=== PATIENT | female | born 1970 | race Caucasian/White ===

== ENCOUNTER 2018-09-12 10:32 | Emergency (ER) | payer MEDICAID ==
[~2018-09-12] VITALS: Ht 160 cm; Wt 75.7 kg
[~2018-09-12 10:32] MED LIST: AZIT250T PO; CYCL10TA7 PO; DM H; HYDR-3498 PO; IBUP-1542 PO; NAPR-985 PO
[2018-09-12 10:35] VITALS: BP 145/74; PULSE 74; RESP 17; Ht 160 cm; Wt 75.7 kg
[2018-09-12] MEDS ORDERED: LORA-441 PO (11:55)
[2018-09-12] MEDS ORDERED: NAPR-688 PO (11:55)
--- NOTE | 2018-09-12 14:28 | ERD ---
ER Documentation Chief Complaint Chief Complaint BACK AND NECK PAIN "FROM STANDING TO LONG" HPI 48-year-old female presents to the ED complaining of cervical neck pain rating down to her shoulder for the past 3 weeks. Patient states the pain is moderate in severity described as aching. She states that the moving from the right to left increases her pain. She has not taken any medications today. Denies fevers or trauma. Patient also states that she has a history of lower back pain but states it is improved today ROS All systems reviewed and are negative except as per history of present illness. Medications Home Meds Active Scripts Lorazepam* (Ativan*) 0.5 Mg Tablet, 0.5 MG PO QHS PRN for MUSCLE SPASMS, #10 TAB Prov:KIKE SPEARS PA-C 09/12/18 Naproxen* (Naproxen*) 500 Mg Tablet, 500 MG PO BID, #30 TAB Prov:KIKE SPEARS PA-C 09/12/18 Naproxen* (Naprosyn*) 500 Mg Tablet, 500 MG PO BID PRN for PAIN AND/OR INFLAMMATION, #30 TAB Prov:FELISA GALLEGO PA-C 02/11/16 Cyclobenzaprine Hcl* (Cyclobenzaprine Hcl*) 10 Mg Tablet, 10 MG PO QHS, #20 TAB Prov:FELISA GALLEGO PA-C 02/11/16 Ibuprofen* (Motrin*) 600 Mg Tab, 600 MG PO Q6, #14 TAB Prov:APOLONIA GRIMM MD 10/12/15 Azithromycin* (Zithromax*) 250 Mg Tablet, 250 MG PO .YonatanPACK DIRECTED, #6 TAB TAKE 500 MG (2 TABS) THE FIRST DAY THEN 250 MG (1 TAB) DAYS 2-5 Prov:APOLONIA GRIMM MD 10/12/15 Ibuprofen* (Motrin*) 600 Mg Tab, 600 MG PO Q6, #20 TAB Prov:ENRRIQUE ROMERO PA-C 06/01/15 Hydrocodone Bit-Acetaminophen* ([place]*) 5-325 Mg Tab, 1 TAB PO Q6 PRN for PAIN, #14 TAB Prov:ENRRIQUE ROMERO PA-C 06/01/15 Reported Medications Dm Hb/Pseudoephed/Acetamin/Cp (Tylenol Cold Caplet) 1 Tab Tablet 09/27/12 Allergies Allergies: Coded Allergies: Penicillins (Verified Allergy, Mild, 11/05/13) PMhx/Soc Medical and Surgical Hx: pt denies Medical Hx History of Surgery: Yes (,, appendectomy) Anesthesia Reaction: No Hx Neurological Disorder: No Hx Respiratory Disorders: No Hx Cardiac Disorders: No Hx Psychiatric Problems: No Hx Miscellaneous Medical Probl: No Hx Alcohol Use: No Hx Substance Use: No Hx Tobacco Use: No Smoking Status: Never smoker Physical Exam Vitals Vital Signs Date Temp Pulse Resp B/P (MAP) Pulse Ox O2 O2 Flow FiO2 Time Delivery Rate 09/12/18 97.5 74 17 145/74 100 10:35 (97) Physical Exam GENERAL: WD/WN, in no apparent distress, non-toxic appearing HENT: NC/AT EYES: Conjunctiva normal NECK: Supple, no masses felt, tender to palpation on right trapezius muscle, non-tender to palpation on cervical spine midline, full range of motion PULM: Normal labored breathing CV: Good capillary refill GI: Non-distended, no guarding BACK: no deformities noted, normal spinal curvature EXT: No clubbing, cyanosis, or edema NEURO: Moves on all fours, sensation intact, normal gait SKIN: intact PSYCH: Normal mood Procedures/MDM 48-year-old female presents to the ER with acute neck pain and muscle spasms, low suspicion for vertebral fracture, cervical radiculopathy, meningitis, epidural abscess, or vertebral osteomyelitis. Patient was given pain relief in the ED. I believe patient is best treated as an outpatient if pain persists.Patient stable and neurovascularly intact for discharge. Prescription for Profen and Short course Ativan as a muscle relaxer was given to patient, discussed to return to the ED if not improving as expected or follow-up with a primary care physician. Patient understood and agreed with this plan. Departure Diagnosis: Primary Impression: Neck pain Additional Impression: Muscle spasm Condition: Stable Patient Instructions: Understanding Neck Problems, Neck Pain, No Trauma, Neck Spasm, No Trauma Referrals: COMMUNITY CLINICS YOU HAVE RECEIVED A MEDICAL SCREENING EXAM AND THE RESULTS INDICATE THAT YOU DO NOT HAVE A CONDITION THAT REQUIRES URGENT TREATMENT IN THE EMERGENCY DEPARTMENT. FURTHER EVALUATION AND TREATMENT OF YOUR CONDITION CAN WAIT UNTIL YOU ARE SEEN IN YOUR DOCTORS OFFICE WITHIN THE NEXT 1-2 DAYS. IT IS YOUR RESPONSIBILITY TO MAKE AN APPOINTMENT FOR FOLOW-UP CARE. IF YOU HAVE A PRIMARY DOCTOR --you should call your primary doctor and schedule an appointment IF YOU DO NOT HAVE A PRIMARY DOCTOR YOU CAN CALL OUR PHYSICIAN REFERRAL HOTLINE AT IF YOU CAN NOT AFFORD TO SEE A PHYSICIAN YOU CAN CHOSE FROM THE FOLLOWING [facility] [address] [facility] [address] [facility] [facility] [address] [facility] [address] [facility] [address] [facility]. [facility]. [address] Additional Instructions: Visite a ellington mdico maana para un EXAMEN.Regrese a estas instalaciones si no se mejora ashley esperbamos o ashley le dijimos. [place] toda la medicina manish y ashley se le indic. Regrese a estas instalaciones si no se mejora ashley esperbamos o ashley le dijimos. La medicina que se le recet puede causarle sueo.NO DEBE MANEJAR NI OPERAR MAQUINARIAS PELIGROSAS mientras esta tomando esta medicina! KIKE SPEARS PA-C Sep 12, 2018 14:27
== END 2018-09-12 14:39 | disposition home or self-care (01) ==
LOC: FTE 10:32
DX: M54.2 Cervicalgia (principal); M62.830 Muscle spasm of back
CPT/HCPCS: 99283